=== PATIENT | female | born 1995 | race Caucasian/White ===

== ENCOUNTER 2016-12-04 08:53 | Emergency (ER) | payer MEDICAID ==
[2016-12-04] MEDS ORDERED: NS 1,000 ML IV ONE (09:07)
[2016-12-04] MEDS ORDERED: METOCLOPRAMIDE 10 MG/2 ML VIAL IVP ONE (09:07)
[2016-12-04] MEDS ORDERED: DEXAMETHASONE 10 MG/ML VIAL IVP ONE (09:07)
--- NOTE | 2016-12-04 09:23 | EDPHY ---
General - History Smoking Status: Never smoked Narrative: Independent physician documentation I evaluated and participated in the management of the patient. I also evaluated the patient independently. My co-signature indicates that I have reviewed this chart and I agree with the findings and plan of care as documented. My personal H&P findings include: The patient presents to the ED with a 6 day history of a headache. She reports a right retro-orbital headache with some extension to her neck. She denies any history of fall or trauma. The patient tells me she has had a chronic intermittent headache since she was a young child. The patient has not seen a neurologist for this condition. The patient tells me this is a typical headache for her. She tells me this is not the worst headache of her life. The patient has not had a history of fall or trauma. She has no history of cervical manipulation. The patient typically takes Tylenol and ibuprofen for management of her symptoms. PHYSICAL EXAM: General Appearance: Alert, no distress Eyes: Pupils equal and round no pallor or injection ENT, Mouth: Mucous membranes moist Respiratory: There are no retractions, lungs are clear to auscultation Cardiovascular: Regular rate and rhythm Gastrointestinal: Abdomen is soft and nontender, no masses, bowel sounds normal Neurological: A&O, normal motor function, normal sensory exam, normal cranial nerves Skin: Warm and dry, no rashes Musculoskeletal: Neck is supple nontender, specifically no evidence of meningitis Extremities: symmetrical, full range of motion Psychiatric: Patient is oriented X 3, there is no agitation The patient received IV medications for treatment of headache. The patient has no clinical evidence of meningitis. Her neurologic examination is normal. The patient has had a chronic headache which is intermittent in nature for years. My suspicion for subarachnoid hemorrhage is low and I do not feel that CT and lumbar puncture are indicated based upon the longstanding history of her symptoms. The patient will be referred to our on-call neurologist for further evaluation of her symptoms. (Bijan Acosta) CHIEF COMPLAINT: Headache HISTORY OF PRESENT ILLNESS: Patient complains of headache of 6 days duration. Gradual onset. Constant duration. History of migraines and this is consistent with migraines but this is the most severe one that she has had. It was not sudden onset. It was not described as thunderclap. She has had some neck pain. She has had this in the past as well. She has no chest pain or shortness of breath. No abdominal pain. The pain is so severe that she is crying and nauseated. Ibuprofen has not helped. She has had no fever. No recent travel. No known sick contacts. No other associated complaints or modifying factors. REVIEW OF SYSTEMS: Ten systems reviewed and are negative unless otherwise noted in the HPI PCP: None SPECIALISTS: None PAST MEDICAL HISTORY: Migraine headaches PAST SURGICAL HISTORY: None SOCIAL HISTORY: Nonsmoker. Occasional alcohol. No illicit substance use. Currently a student at [employer] FAMILY HISTORY: Noncontributory EXAMINATION General Appearance: Alert, no distress Head: normocephalic, atraumatic Eyes: Pupils equal and round, no conjunctival pallor or injection ENT, Mouth: Mucous membranes moist Neck: Normal inspection, supple, no meningismus or rigidity. Painless range of motion all planes. Negative Kernig and negative Brudzinski. Respiratory: Lungs are clear to auscultation. No wheezing, rhonchi or crackles Cardiovascular: Regular rate and rhythm. No murmur. Gastrointestinal: Abdomen is soft and nontender. No distention or tympany. No rigidity. Back: Normal appearance. non-tender, no bony abnormalities Neurological: GCS 15. A&O, nonfocal, normal gait. Strength symmetric in all 4 limbs. Skin: Warm and dry, no rash. No petechiae or purpura Extremities: Nontender, no pedal edema Psychiatric: Mood and affect normal DIFFERENTIAL DIAGNOSES: Including but not limited to migraine headache, cluster headache, subarachnoid hemorrhage, meningitis, meningismus, dehydration MDM: 9:13 a.m. Headache in a patient with history of migraines. This was not sudden onset. She does describe it as the worst headache that she has had like this. No meningismus or rigidity on examination. I do not have a high suspicion for meningitis, but I have ordered laboratory studies. I have also ordered IV fluid , nasal oxygen, Reglan, Benadryl and Decadron. She is in no acute distress with normal vital signs. 9:37 a.m. Notified by RNPetey. Patient was administer Decadron and then became very anxious. She is crying and feeling very upset. He is concerned that this has sent her into a panic attack. I have ordered 1 mg Ativan and I will re- evaluate. 10:00 a.m. I have re-evaluated the patient she is resting comfortably and asleep. She says the Ativan as helping. Laboratory studies are all negative including negative CBC HCG. 10:40 a.m. Patient re-evaluated. She is resting comfortably. Headache has resolved. She is comfortable going home. She has no meningismus or rigidity. She is afebrile with stable vital signs. I do not feel she warrants a lumbar puncture at this time. I do feel she is stable for discharge. We discussed return to emergency department precautions for any neck stiffness, fever or sudden change in her headache. Discharged home with symptomatic medications for 1-2 days. Follow up primary care physician or the on-call primary care physician that we have provided. Recommend follow up with Neurology outpatient. She is comfortable this plan. (Genaro Meléndez) - Objective Vital Signs: Initial Vital Signs Temperature (C) 98.6 F 12/04/16 08:54 Heart Rate 89 12/04/16 08:54 Respiratory Rate 20 12/04/16 08:54 Blood Pressure 114/79 12/04/16 08:54 O2 Sat (%) 98 12/04/16 08:54 O2 Delivery Mode Room Air O2 (L/minute) 2 Allergies/Adverse Reactions: No Known Allergies Allergy (Unverified 12/04/16 08:54) Home Medications: Medication Instructions Recorded Codeine/Butalbit/Acetamin/Caff 1 each PO Q6 PRN #12 capsule 12/04/16 [Fioricet-Cod 63-01-996-40 Cap] Ortho-Cyclen 12/04/16 Laboratory Results: Laboratory Results 12/04/16 09:12 12/04/16 09:12 12/04/16 12/04/16 12/04/16 09:12 09:12 09:12 WBC 8.47 10^3/uL 10^3/uL (3.80-9.50) RBC 4.70 10^6/uL 10^6/uL (4.18-5.33) Hgb 14.5 g/dL g/dL (12.6-16.3) Hct 41.1 % % (38.0-47.0) MCV 87.4 fL fL (81.5-99.8) MCH 30.9 pg pg (27.9-34.1) MCHC 35.3 g/dL g/dL (32.4-36.7) RDW 11.6 % % (11.5-15.2) Plt Count 275 10^3/uL 10^3/uL (150-400) MPV 9.4 fL fL (8.7-11.7) Neut % (Auto) 66.6 % % (39.3-74.2) Lymph % (Auto) 23.1 % % (15.0-45.0) Ritchie % (Auto) 8.4 % % (4.5-13.0) Eos % (Auto) 1.3 % % (0.6-7.6) Baso % (Auto) 0.2 % L % (0.3-1.7) Nucleat RBC Rel Count 0.0 % % (0.0-0.2) Absolute Neuts (auto) 5.64 10^3/uL 10^3/uL (1.70-6.50) Absolute Lymphs (auto) 1.96 10^3/uL 10^3/uL (1.00-3.00) Absolute Monos (auto) 0.71 10^3/uL 10^3/uL (0.30-0.80) Absolute Eos (auto) 0.11 10^3/uL 10^3/uL (0.03-0.40) Absolute Basos (auto) 0.02 10^3/uL 10^3/uL (0.02-0.10) Absolute Nucleated RBC 0.00 10^3/uL 10^3/uL (0-0.01) Immature Gran % 0.4 % % (0.0-1.1) Immature Gran # 0.03 10^3/uL 10^3/uL (0.00-0.10) Sodium 140 mEq/L mEq/L (134-144) Potassium 4.3 mEq/L mEq/L (3.5-5.2) Chloride 106 mEq/L mEq/L (97-110) Carbon Dioxide 23 mEq/l mEq/l (22-31) Anion Gap 11 mEq/L mEq/L (8-16) BUN 7 mg/dL mg/dL (7-23) Creatinine 0.7 mg/dL mg/dL (0.6-1.0) Estimated GFR > 60 Glucose 86 mg/dL mg/dL (70-100) Calcium 9.8 mg/dL mg/dL (8.5-10.4) Lipase 93 IU/L IU/L (23-300) Beta HCG, Qual NEGATIVE Medications Given: Discontinued Medications Dexamethasone (Decadron Injection) 10 mg IVP EDNOW ONE Stop: 12/04/16 09:08 Last Admin: 12/04/16 09:28 Dose: 10 mg Diphenhydramine HCl (Benadryl Injection) 50 mg IVP EDNOW ONE Stop: 12/04/16 09:13 Last Admin: 12/04/16 09:30 Dose: 50 mg Sodium Chloride (Ns) 1,000 mls @ 0 mls/hr IV EDNOW ONE; Wide Open PRN Reason: Protocol Stop: 12/04/16 09:08 Last Admin: 12/04/16 09:25 Dose: 1,000 mls Lorazepam (Ativan Injection) 1 mg IVP EDNOW ONE Stop: 12/04/16 09:37 Last Admin: 12/04/16 09:39 Dose: 1 mg Metoclopramide HCl (Reglan Injection) 10 mg IVP EDNOW ONE Stop: 12/04/16 09:08 Last Admin: 12/04/16 09:26 Dose: 10 mg Departure - Departure Disposition: Home, Routine, Self-Care Clinical Impression: Headache Qualifiers: Headache type: unspecified Headache chronicity pattern: acute headache Intractability: not intractable Qualified Code(s): R51 - Headache Condition: Good Instructions: Migraine Headache (ED), Acute Headache (ED) Additional Instructions: 1. Medications as prescribed as needed 2. Return to emergency department for neck stiffness fever, worsening headache or any sudden change in headache Referrals: Marek Merchant DO [Doctor of Osteopathy] - As per Instructions Stand Alone Forms: School Excuse Prescriptions: Codeine/Butalbit/Acetamin/Caff [Fioricet-Cod [id number] Cap] 1 each PO Q6 PRN #12 capsule PRN Reason: Headache
[2016-12-04 09:24] LABS: % IMMATURE GRANULYOCYTES 0.4 % (0.0-1.1); ABSOLUTE IMMATURE GRANULOCYTES 0.03 10^3/uL (0.00-0.10); ADD DIFF? NO; ADD MORPH? NO; ADD SCAN? NO; ATYPICAL LYMPHOCYTE FLAG 30 (0-99); FRAGMENT RBC FLAG 0 (0-99); HEMATOCRIT 41.1 % (38.0-47.0); HEMOGLOBIN 14.5 g/dL (12.6-16.3); LEFT SHIFT FLG 0 (0-99); LIPEMIA HEMOLYSIS FLAG 90 (0-99); MEAN CELL HEMOGLOBIN 30.9 pg (27.9-34.1); MEAN CELL HEMOGLOBIN CONCENTR. 35.3 g/dL (32.4-36.7); MEAN CELL VOLUME 87.4 fL (81.5-99.8); MEAN PLATELET VOLUME 9.4 fL (8.7-11.7); PLATELET CLUMPS FLAG 10 (0-99); PLATELET COUNT 275 10^3/uL (150-400); RED CELL DISTRIBUTION WIDTH 11.6 % (11.5-15.2)
[2016-12-04] MEDS ORDERED: LORazepam 2 MG/ML INJ IVP ONE (09:36)
[2016-12-04] MEDS ORDERED: LORazepam 2 MG/ML INJ ONE (09:38)
[2016-12-04 09:45] LABS: ANION GAP 11 mEq/L (8-16); CALCIUM 9.8 mg/dL (8.5-10.4); CARBON DIOXIDE 23 mEq/l (22-31); CHLORIDE 106 mEq/L (97-110); CREATININE 0.7 mg/dL (0.6-1.0); GLOMERULAR FILTRATION RATE > 60; GLUCOSE 86 mg/dL (70-100); POTASSIUM 4.3 mEq/L (3.5-5.2); SODIUM 140 mEq/L (134-144)
[2016-12-04 11:20] VITALS: BP 111/67; PULSE 69; RESP 18; TEMP 98.2; O2SAT 95
== END 2016-12-04 11:21 | disposition home or self-care (01) ==
DX: R51 Headache (principal); E86.9 Volume depletion, unspecified
CPT/HCPCS: 96374; J1100; J1200; J2060; J2765